=== PATIENT | male | born 2000 | race Caucasian/White ===

== ENCOUNTER 2018-11-13 10:46 | Emergency (ER) | payer OTHER ==
[~2018-11-13] VITALS: Ht 180.3 cm; Wt 80.0 kg
[~2018-11-13 10:46] MED LIST: SINGULAIR10 MG OR
[2018-11-13] MEDS ORDERED: TORADOL PO (12:18)
[2018-11-13] MEDS ORDERED: FLEXERIL PO (12:18)
[2018-11-13 12:28] VITALS: BP 144/81
== END 2018-11-13 12:34 | disposition home or self-care (01) | DRG 552 ==
LOC: ED 10:46
DX: S16.1XXA Strain of muscle, fascia and tendon at neck level, initial encounter (principal); S29.012A Strain of muscle and tendon of back wall of thorax, initial encounter; V49.40XA Driver injured in collision with unspecified motor vehicles in traffic accident, initial encounter